=== PATIENT | male | born 1970 | race Caucasian/White ===

== ENCOUNTER 2021-07-05 06:42 | Inpatient (IN) | payer OTHER, SELFPAY ==
[~2021-07-05] VITALS: Ht 188 cm; Wt 104.5 kg
[2021-07-05] MEDS ORDERED: AZIT-12 PO (08:19)
[2021-07-05] MEDS ORDERED: FLUTISP NARES (08:19)
[2021-07-05] MEDS ORDERED: ALBU8.5H INH (08:19)
[2021-07-05] MEDS ORDERED: PRED20TA PO (08:19)
[2021-07-05] MEDS ORDERED: HOME MED LIST COMPLETE! XX SCH (08:20)
[2021-07-05 08:23] LABS: BASO % 0.2 % (0.0-1.0); HEMATOCRIT 50.3 % (42.0-52.0); LYMPH # 0.8 10^3/uL (1.5-5.0); LYMPH % 9.6 % (24.0-44.0); MEAN CORPUSCULAR HEMOGLOBIN 28.7 pg (27.0-33.0); MEAN CORPUSCULAR HGB CONC 33.8 g/dl (32.0-36.5); MEAN CORPUSCULAR VOLUME 84.8 fl (80.0-96.0); MONO # 0.5 10^3/uL (0.0-0.8); MONO % 5.5 % (2.0-8.0); NEUTROPHILS # 6.9 10^3/uL (1.5-8.5); NEUTROPHILS % 84.1 % (36.0-66.0); PLATELET COUNT, AUTOMATED 295 10^3/uL (150-450); RED BLOOD COUNT 5.93 10^6/uL (4.30-6.10); WHITE BLOOD COUNT 8.2 10^3/uL (4.0-10.0)
--- NOTE | 2021-07-05 08:28 | REP ---
INDICATION: Coronavirus workup COMPARISON: None. TECHNIQUE: Portable AP view of the chest FINDINGS: Mediastinum and cardiac silhouette are normal. Very subtle mid to lower lobe opacities are suspected and concerning for COVID-19 pulmonary disease. No discrete focal consolidation. No effusion. No pneumothorax. IMPRESSION: Subtle mid to lower lobe opacities concerning for COVID-19 pulmonary disease. <Electronically signed by Tj Cook > 07/05/21 0861
[2021-07-05 08:32] LABS: INR 1.02; PROTHROMBIN TIME 13.8 SECONDS (12.7-14.5)
[2021-07-05 08:33] LABS: PARTIAL THROMBOPLASTIN TIME 30.8 SECONDS (25.9-37.0)
[2021-07-05 08:36] LABS: D-DIMER QUANT 524.22 ng/ml (<500)
[2021-07-05 08:51] LABS: ALBUMIN 3.1 GM/DL (3.2-5.2); ALT/SGPT 51 U/L (12-78); BILIRUBIN,TOTAL 0.7 MG/DL (0.2-1.0); BLOOD UREA NITROGEN 31 MG/DL (7-18); C REACTIVE PROTEIN QUANTITATIV 5.33 MG/DL (0.00-0.30); CALCIUM LEVEL 9.2 MG/DL (8.5-10.1); CARBON DIOXIDE LEVEL 26 MEQ/L (21-32); CHLORIDE LEVEL 103 MEQ/L (98-107); CREATININE FOR GFR 0.85 MG/DL (0.70-1.30); FERRITIN 1068 NG/ML (26-388); GLOMERULAR FILTRATION RATE > 60.0 (>56); GLUCOSE, FASTING 133 MG/DL (70-100); LDH LACTATE DEHYDROGENASE 396 U/L (87-241); SODIUM LEVEL 138 MEQ/L (136-145); TOTAL PROTEIN 6.8 GM/DL (6.4-8.2)
[2021-07-05 08:53] LABS: CK-MB VALUE MASS < 1.0 NG/ML (<3.6); CPK CREATINE PHOSPHOKINASE 63 U/L (39-308); MB/CK RELATIVE INDEX 1.59 (< OR =4)
[2021-07-05 09:25] LABS: ABG BASE EXCESS 0.3 (-2.0-2.0); ABG HCO3 23.6 MEQ/L (22.0-26.0); ABG O2 SATURATION 97.8 % (95.0-99.0); ABG PARTIAL PRESSURE CO2 34.9 mmHg (35.0-45.0); ABG PARTIAL PRESSURE O2 108.8 mmHg (75.0-100.0); ABG STANDARD HCO3 24.7 MEQ/L (22.0-26.0); ABG TOTAL CO2 24.7 MEQ/L (22.0-29.0); ABG pH (ARTERIAL) 7.448 UNITS (7.350-7.450)
[2021-07-05] MEDS: ASPIRIN 81MG ENTERIC TABLET PO SCH (10:56)
[2021-07-05] MEDS: dexameTHASONE 4 MG/ML 1ML VIAL (J1100 PER 1MG) IV SCH (10:56)
--- NOTE | 2021-07-05 11:58 | HPEPDOC ---
General Date of Admission Jul 05, 2021 at 10:09 Date of Service: Jul 05, 2021 Chief Complaint The patient is a 50-year-old male admitted with a reason for visit of Acute Hypoxemic Respiratory Failure Due To Covid19. Source: Patient Exam Limitations: No limitations Timing/Duration: Day(s) (11) Severity: Mild Associated Symptoms: Cough, Fever, Chills, Nausea History of Present Illness Patient is a a very pleasant 50 year old male presented to [facility] ER due to fever, chills, dyspnea, loss of smell, and loss of taste. He reported that his symptoms started on 06/24/2021 after he met with his son and son-in-law. Sick contact including his son and his son in law who were both tested positive for COVID. He started having symptoms including fever, chills, dyspnea, loss of smell, loss of taste, diarrhea. He reported that his symptoms has been improving mildly but today he started to have productive cough without hemoptysis. Patient was saturating at 91% on room air in the ER, and it was noted that the patient would desaturate to 85% while standing. In the ER patient required 4 liter of nasal cannula oxygen to be saturating at around 95%. He denies rhinorrhea, abdominal pain, chest pain, palpitation, numbness, tingling, or loss of sensation. Home Medications Scheduled Ascorbic Acid (Vitamin C) 500 Mg Tablet, 500 MG PO BID Dexamethasone (Dexamethasone) 2 Mg Tablet, 2 MG PO DAILY Zinc Sulfate (Zinc Sulfate) 220 Mg Capsule, 220 MG PO DAILY Scheduled PRN Albuterol Sulfate (Albuterol Sulfate Hfa) 8.5 Gm Hfa.aer.ad, 1-2 PUFFS INH Q4H PRN for SOB/WHEEZING, (Reported) Fluticasone Propionate (Fluticasone Propionate) 16 Gm [place].susp, 2 SPRAY NARES DAILY PRN for , (Reported) Allergies Coded Allergies: No Known Allergies (Verified Allergy, Unknown, 07/05/21) Past Medical History Medical History Depression Insomnia Family History Significant Family History: No pertinent family hx Social History * Smoker: Denies Recent Travel/Sick Contacts: Reports: Recent sick contacts A-FIB/CHADSVASC A-FIB History Current/History of A-Fib/PAF?: No Review of Systems Constitutional: Reports: Chills, Fever, Fatigue Pulmonary: Reports: Cough; Denies: Dyspnea Cardiovascular: Denies: Chest Pain, Palpitations Gastrointestinal: Reports: Diarrhea; Denies: Nausea, Vomiting, Abdominal Pain, Constipation, Hematochezia Musculoskeletal: Reports: Other Symptoms (Generalized body ache) Neurological: Denies: Numbness Physical Examination General Exam: Positive: Alert, Cooperative, No Acute Distress Eye Exam: Positive: Conjunctiva & lids normal; Negative: Sclera icteric ENT Exam: Positive: Atraumatic, Mucous membr. moist/pink Neck Exam: Positive: Supple Chest Exam: Positive: Clear to auscultation, Normal air movement; Negative: Rales, Rhonchi, Wheezing Heart Exam: Positive: Rate Normal, Regular Rhythm, Normal S1, Normal S2; Negative: Murmurs Abdomen Exam: Positive: Normal bowel sounds, Soft; Negative: Tenderness Skin Exam: Positive: Nl turgor and temperature Neuro Exam: Positive: Normal Speech, Normal Tone Psych Exam: Positive: Mental status NL, Mood NL, Memory Intact, Oriented x 3 Vital Signs Vital Signs Date Time Temp Pulse Resp B/P (MAP) Pulse Ox O2 Delivery O2 Flow Rate FiO2 07/05/21 11:15 126/76 (93) 07/05/21 11:12 81 24 94 Nasal Cannula 4.0 07/05/21 06:43 98.2 Laboratory Data Labs 24H Laboratory Tests 2 07/05/21 08:02: Immature Granulocyte % (Auto) 0.6, Neutrophils (%) (Auto) 84.1H, Lymphocytes (%) (Auto) 9.6L, Monocytes (%) (Auto) 5.5, Eosinophils (%) (Auto) 0.0, Basophils (%) (Auto) 0.2, Neutrophils # (Auto) 6.9, Lymphocytes # (Auto) 0.8L, Monocytes # (Auto) 0.5, Eosinophils # (Auto) 0.0, Basophils # (Auto) 0.0, Nucleated Red Blood Cells % (auto) 0.0, Prothrombin Time 13.8, Prothromb Time International Ratio 1.02, Activated Partial Thromboplast Time 30.8, D-Dimer, Quantitative 524.22H, Anion Gap 9, Glomerular Filtration Rate > 60.0, Lactic Acid Level 1.8, Calcium Level 9.2, Ferritin 1068H, Total Bilirubin 0.7, Aspartate Amino Transf (AST/SGOT) 38H, Alanine Aminotransferase (ALT/SGPT) 51, Alkaline Phosphatase 57, Lactate Dehydrogenase 396H, Total Creatine Kinase 63, Creatine Kinase MB < 1.0, Creatine Kinase MB Relative Index 1.59, Troponin I High Sensitivity 9.0, C- Reactive Protein, Quantitative 5.33H, Total Protein 6.8, Albumin 3.1L, Albumin/Globulin Ratio 0.8 07/05/21 08:46: Blood Gas Bicarbonate Standard 24.7, Arterial Blood pH 7.448, Arterial Blood Partial Pressure CO2 34.9L, Arterial Blood Partial Pressure O2 108.8H, Arterial Blood Total CO2 24.7, Arterial Blood HCO3 23.6, Arterial Blood Base Excess 0.3, Arterial Blood Oxygen Saturation 97.8 CBC/BMP Laboratory Tests 07/05/21 08:02 Microbiology Microbiology 07/05/21 Blood Culture, Received Pending 07/05/21 Blood Culture, Received Pending Assessment/Plan Patient is a very pleasant 50 year old male presented to [facility] ER due to fever, chills, dyspnea, cough, and diarrhea who was tested positive for COVID on 07/02/2021 presented to [facility] ER who was found to have hypoxia. Patient was admitted to the hospital for COVID pneumonia #COVID pneumonia -Symptom onset on 06/24/2021, COVID test positive reported at [facility] on 07/02/[facility]21 -Oxygen therapy to keep oxygen saturation greater than 90%. Oxygen monitoring -CXR showed "Subtle mid to lower lobe opacities concerning for COVID-19 pulmonary disease." Blood cultureX2 pending -Start IV Dexamethasone and Remdesivir. Albuterol inhaler as needed. -Zinc Sulfate and Vitamin C. Tylenol PRN for fever -Pronation -Procalcitonin 0.07, indicating low likelihood of superimposed bacteria pneumonia. Will not start antibiotics at this time #Depression -Not on home medication -Patient's mood appears to be stable. Continue to monitor #Insomnia -Not on home medication -If sleep disturbance, may start sleep medication PRN for sleep DVT prophylaxis: Lovenox Plan / VTE VTE Prophylaxis Ordered?: Yes GME ATTESTATION GME ATTESTATION My faculty preceptor for this patient encounter was physically present during the encounter and was fully available. All aspects of the patient interview, examination, medical decision making process, and medical care plan development were reviewed and approved by the faculty preceptor. The faculty preceptor is aware and concurs with the plan as stated in the body of this note and will attest to such by his/her cosignature. ATTENDING NOTE I, Dale Prado MD, have independently examined this patient and performed my own physical exam while the resident and the students were with me in the patient room, as well as reviewed the documentation and edited where necessary. I have discussed in detail with the resident / student the findings and plan of treatment as documented by the resident / student and edited their note. I agree with their findings and treatment plan and have edited their documentation. LYLY CAMPA DO Jul 05, 2021 11:58 DALE PRADO MD Jul 08, 2021 15:45
[2021-07-05] MEDS: ASCORBIC ACID 500 MG TAB PO SCH (13:50)
[2021-07-05] MEDS: ZINC SULFATE 220 MG CAP PO SCH (13:50)
[2021-07-05] MEDS ORDERED: REMDESIVIR 200 MG in NS 250 ML IV ONE (14:00)
[2021-07-05] MEDS ORDERED: ALBUTEROL 90 MCG/ACT 8GM HFA INHALER INH PRN (14:50)
[2021-07-05] MEDS ORDERED: SODIUM CHLORIDE 0.9% INJ 10 ML SYR IV ONE (16:00)
[2021-07-05 17:24] VITALS: BP 124/86
[2021-07-05 18:03] LABS: APPEARANCE, URINE HAZY (CLEAR); BACTERIA, URINE AUTO NEGATIVE (NEGATIVE); BILIRUBIN, URINE AUTO NEGATIVE (NEGATIVE); BLOOD, URINE BLOOD NEGATIVE (NEGATIVE); COLOR, URINE AMBER (YELLOW); GLUCOSE, URINE (UA) AUTO NEGATIVE (NEGATIVE); KETONE, URINE AUTO TRACE mg/dL (NEGATIVE); LEUKOCYTE ESTERASE, URINE AUTO NEGATIVE (NEGATIVE); MUCUS, URINE SMALL (NEGATIVE); NITRITE, URINE AUTO NEGATIVE (NEGATIVE); PROTEIN, URINE AUTO 2+ mg/dL (NEGATIVE); RBC, URINE AUTO 1 /HPF (0-3); SQUAMOUS EPITHELIAL CELL UR AU 0 /HPF (0-6); UROBILINOGEN, URINE AUTO 0.2 mg/dL (0.0-2.0); WBC, URINE AUTO 2 /HPF (0-3)
[2021-07-05 20:00] VITALS: O2SAT 97
--- NOTE | 2021-07-05 20:17 | ECGEPIP ---
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
[2021-07-05 22:00] VITALS: BP 127/86
[2021-07-06] VITALS: O2SAT 93
[2021-07-06 04:00] VITALS: O2SAT 93
[2021-07-06 05:27] VITALS: BP 120/69
[2021-07-06 08:02] LABS: HEMATOCRIT 46.6 % (42.0-52.0); HEMOGLOBIN 15.9 g/dl (13.5-17.5); MEAN CORPUSCULAR HEMOGLOBIN 28.9 pg (27.0-33.0); MEAN CORPUSCULAR HGB CONC 34.1 g/dl (32.0-36.5); MEAN CORPUSCULAR VOLUME 84.7 fl (80.0-96.0); PLATELET COUNT, AUTOMATED 325 10^3/uL (150-450); WHITE BLOOD COUNT 8.9 10^3/uL (4.0-10.0)
[2021-07-06] MEDS: ZINC SULFATE 220 MG CAP PO SCH (08:03)
[2021-07-06] MEDS: dexameTHASONE 4 MG/ML 1ML VIAL (J1100 PER 1MG) IV SCH (08:03)
[2021-07-06] MEDS: ASCORBIC ACID 500 MG TAB PO SCH (08:03)
[2021-07-06] MEDS: ENOXAPARIN 40MG/0.4ML SYRINGE (J1650 PER 10MG) SC SCH (08:03)
[2021-07-06] MEDS: ASPIRIN 81MG ENTERIC TABLET PO SCH (08:03)
[2021-07-06 08:22] LABS: BLOOD UREA NITROGEN 28 MG/DL (7-18); CALCIUM LEVEL 9.1 MG/DL (8.5-10.1); CARBON DIOXIDE LEVEL 30 MEQ/L (21-32); CHLORIDE LEVEL 103 MEQ/L (98-107); CREATININE FOR GFR 0.69 MG/DL (0.70-1.30); GLOMERULAR FILTRATION RATE > 60.0 (>56); GLUCOSE, FASTING 101 MG/DL (70-100); MAGNESIUM LEVEL 2.7 MG/DL (1.8-2.4); POTASSIUM SERUM 3.5 MEQ/L (3.5-5.1); SODIUM LEVEL 139 MEQ/L (136-145)
[2021-07-06 08:27] LABS: ATYPICAL LYMPH 2 % (0-5); LYMPHOCYTES 9 % (16-44); MONOCYTES 11 % (0-5); NEUTROPHILS 78 % (28-66); PLATELET ESTIMATE NORMAL (NORMAL); POIKILOCYTOSIS 1+
[2021-07-06] MEDS ORDERED: DOCUSATE SODIUM 100MG CAPSULE PO PRN (12:00)
--- NOTE | 2021-07-06 12:02 | IPNPDOC ---
Subjective Date Seen The patient was seen on 07/06/21. Subjective Chief Complaint/HPI Patient was examined at bedside. He said the his cough has improved. He denies fever, chills, dyspnea, chest pain, palpitation, nausea, vomiting, abdominal pain, or diarrhea. He has been saturating well on 4L oxygen. No events were reported overnight General: Denies: Chills Constitutional: Denies: Chills, Fever ENT: Reports: Other Symptoms (loss of taste) Pulmonary: Denies: Dyspnea Cardiovascular: Denies: Chest Pain, Palpitations Gastrointestinal: Denies: Nausea, Vomiting, Abdominal Pain, Constipation Neurological: Reports: Other Symptoms (Denies tingling or loss of sensation); Denies: Numbness Psych: Denies: Anxiety, Depression Objective Physical Examination General Exam: Positive: Alert, Cooperative, No Acute Distress Eye Exam: Positive: Conjunctiva & lids normal; Negative: Sclera icteric ENT Exam: Positive: Atraumatic, Mucous membr. moist/pink Neck Exam: Positive: Supple Chest Exam: Positive: Clear to auscultation, Normal air movement; Negative: Rales, Rhonchi, Wheezing Heart Exam: Positive: Rate Normal, Regular Rhythm, Normal S1, Normal S2; Negative: Murmurs Abdomen Exam: Positive: Normal bowel sounds, Soft; Negative: Tenderness Skin Exam: Positive: Nl turgor and temperature Neuro Exam: Positive: Normal Speech, Normal Tone Psych Exam: Positive: Mental status NL, Mood NL, Memory Intact, Oriented x 3; Negative: Anxiety Assessment /Plan Assessment Patient is a very pleasant 50 year old male presented to [facility] ER due to fever, chills, dyspnea, cough, and diarrhea who was tested positive for COVID on 07/02/2021 presented to [facility] ER who was found to have hypoxia. Patient was admitted to the hospital for COVID pneumonia #COVID pneumonia -Symptom onset on 06/24/2021, COVID test positive reported at [facility] on 07/02/[facility]21 -Oxygen therapy to keep oxygen saturation greater than 90%. Oxygen monitoring. Patient has been saturating well on 4L oxygen. Titrate down oxygen ordered -CXR showed "Subtle mid to lower lobe opacities concerning for COVID-19 pulmon oniel disease." Blood cultureX2 pending -Start IV Dexamethasone and Remdesivir. Albuterol inhaler as needed. Incentive spirometry ordered -Zinc Sulfate and Vitamin C. Tylenol PRN for fever -Awake pronation -Procalcitonin 0.07, indicating low likelihood of superimposed bacteria pneumonia. Will not start antibiotics at this time #Depression -Not on home medication -Patient denies feeling depressed. Patient's mood appears to be stable. Continue to monitor #Insomnia -Not on home medication -If sleep disturbance, may start sleep medication PRN for sleep CODE STATUS: FULL CODE DVT prophylaxis: Lovenox Plan/VTE VTE Prophylaxis Ordered?: Yes VS, I&O, 24H, Fishbone Vital Signs/I&O Vital Signs Date Time Temp Pulse Resp B/P (MAP) Pulse Ox O2 Delivery O2 Flow Rate FiO2 07/06/21 05:27 98.0 66 19 120/69 (86) 91 Nasal Cannula 4.0 I&O- Last 24 Hours up to 6 AM 07/06/21 06:00 Intake Total 320 ml Output Total 800 ml Balance -480 ml Laboratory Data 24H LABS Laboratory Tests 2 07/05/21 17:31: Urine Color ELIE, Urine Appearance HAZY, Urine pH 6.0, Urine Specific [place] 1.030, Urine Protein 2+H, Urine Glucose (Auto)(UA) NEGATIVE, Urine Ketones (Auto) TRACEH, Urine Blood NEGATIVE, Urine Nitrite NEGATIVE, Urine Bilirubin NEGATIVE, Urine Urobilinogen 0.2, Urine Leukocyte Esterase (Auto) NEGATIVE, Urine WBC (Auto) 2, Urine RBC (Auto) 1, Urine Hyaline Casts (Auto) 0, Urine Bacteria (Auto) NEGATIVE, Urine Squamous Epithelial Cells 0, Urine Mucus (Auto) SMALL, Urine Sperm (Auto) 07/06/21 07:32: Neutrophils (%) (Auto) , Nucleated Red Blood Cells % (auto) 0.0, Neutrophils 78H, Lymphocytes (Manual) 9L, Monocytes (Manual) 11H, Atypical Lymphocytes 2, Poikilocytosis 1+, Platelet Estimate NORMAL, Anion Gap 6L, Glomerular Filtration Rate > 60.0, Calcium Level 9.1, Magnesium Level 2.7H CBC/BMP Laboratory Tests 07/06/21 07:32 Microbiology Microbiology 07/05/21 Blood Culture - Preliminary, Resulted No growth after 24 hours . All specim... 07/05/21 Blood Culture - Preliminary, Resulted No growth after 24 hours . All specim... GME ATTESTATION GME ATTESTATION My faculty preceptor for this patient encounter was physically present during the encounter and was fully available. All aspects of the patient interview, examination, medical decision making process, and medical care plan development were reviewed and approved by the faculty preceptor. The faculty preceptor is aware and concurs with the plan as stated in the body of this note and will attest to such by his/her cosignature. ATTENDING NOTE I, Dale Prado MD, have independently examined this patient and performed my own physical exam, as well as reviewed the documentation and edited where necess oniel. I have discussed in detail with the resident / student the findings and plan of treatment as documented by the resident / student and edited their note. I agree with their findings and treatment plan and have edited their documentation. LYLY CAMPA DO Jul 06, 2021 12:02 DALE PRADO MD Jul 14, 2021 15:31
[2021-07-06 14:00] VITALS: BP 116/80
[2021-07-06] MEDS: REMDESIVIR 100 MG in NS 250 ML IV SCH (14:11)
[2021-07-06] MEDS: SODIUM CHLORIDE 0.9% INJ 10 ML SYR IV SCH (15:00)
[2021-07-06 19:36] VITALS: O2SAT 92
[2021-07-06 20:00] VITALS: BP 119/74; O2SAT 92
[2021-07-07] VITALS: O2SAT 94
[2021-07-07 04:00] VITALS: BP 117/80; O2SAT 89
[2021-07-07 06:18] LABS: BASO % 0.1 % (0.0-1.0); EOS % 0.2 % (0.0-3.0); HEMATOCRIT 43.8 % (42.0-52.0); HEMOGLOBIN 14.8 g/dl (13.5-17.5); LYMPH # 1.7 10^3/uL (1.5-5.0); LYMPH % 17.5 % (24.0-44.0); MEAN CORPUSCULAR HGB CONC 33.8 g/dl (32.0-36.5); MEAN CORPUSCULAR VOLUME 85.9 fl (80.0-96.0); MONO # 0.8 10^3/uL (0.0-0.8); MONO % 8.2 % (2.0-8.0); NEUTROPHILS # 6.9 10^3/uL (1.5-8.5); NEUTROPHILS % 72.9 % (36.0-66.0); PLATELET COUNT, AUTOMATED 351 10^3/uL (150-450); WHITE BLOOD COUNT 9.5 10^3/uL (4.0-10.0)
[2021-07-07 06:34] LABS: INR 1.13; PROTHROMBIN TIME 14.9 SECONDS (12.7-14.5)
[2021-07-07 06:35] LABS: PARTIAL THROMBOPLASTIN TIME 32.8 SECONDS (25.9-37.0)
[2021-07-07 06:51] LABS: ALBUMIN 2.5 GM/DL (3.2-5.2); ALT/SGPT 54 U/L (12-78); BILIRUBIN,DIRECT 0.2 MG/DL (0.0-0.2); BILIRUBIN,TOTAL 0.6 MG/DL (0.2-1.0); BLOOD UREA NITROGEN 27 MG/DL (7-18); CALCIUM LEVEL 8.8 MG/DL (8.5-10.1); CARBON DIOXIDE LEVEL 27 MEQ/L (21-32); CHLORIDE LEVEL 106 MEQ/L (98-107); CREATININE FOR GFR 0.62 MG/DL (0.70-1.30); FERRITIN 630 NG/ML (26-388); GLOMERULAR FILTRATION RATE > 60.0 (>56); GLUCOSE, FASTING 89 MG/DL (70-100); LDH LACTATE DEHYDROGENASE 237 U/L (87-241); MAGNESIUM LEVEL 2.3 MG/DL (1.8-2.4); NT-PRO BNP 22 PG/ML (<125); POTASSIUM SERUM 3.4 MEQ/L (3.5-5.1); SODIUM LEVEL 141 MEQ/L (136-145); TOTAL PROTEIN 6.2 GM/DL (6.4-8.2)
[2021-07-07] MEDS ORDERED: POTASSIUM CHLORIDE 10MEQ SR TABLET PO ONE (07:15)
[2021-07-07 08:00] VITALS: O2SAT 95
--- NOTE | 2021-07-07 09:34 | REP ---
INDICATION: Pneumonia/COVID COMPARISON: 07/05/2021 TECHNIQUE: Portable AP view of the chest FINDINGS: The mediastinum and cardiac silhouette are stable and within normal limits for portable technique. Subtle linear and patchy opacities primarily in the bilateral mid to lower lung zones again suspected and should be correlated clinically. No discrete focal consolidation. No effusion. No pneumothorax. Skeletal structures are intact. IMPRESSION: Subtle scattered patchy and somewhat linear opacities may reflect COVID-19 pulmonary disease and correlation is required. <Electronically signed by Tj Cook > 07/07/21 [id number]
[2021-07-07] MEDS: ENOXAPARIN 40MG/0.4ML SYRINGE (J1650 PER 10MG) SC SCH (09:47)
[2021-07-07] MEDS: ASPIRIN 81MG ENTERIC TABLET PO SCH (09:47)
[2021-07-07] MEDS: ZINC SULFATE 220 MG CAP PO SCH (09:47)
[2021-07-07] MEDS: dexameTHASONE 4 MG/ML 1ML VIAL (J1100 PER 1MG) IV SCH (09:48)
[2021-07-07] MEDS: ASCORBIC ACID 500 MG TAB PO SCH (09:48)
[2021-07-07] MEDS ORDERED: VITA-243 PO (11:48)
[2021-07-07] MEDS ORDERED: DEXA2TA PO (11:48)
[2021-07-07] MEDS ORDERED: ZINC220CA PO (11:49)
[2021-07-07 12:10] VITALS: O2SAT 95
--- NOTE | 2021-07-07 13:01 | DS.PDOC ---
Discharge Summary General Date of Admission Jul 05, 2021 at 10:09 Date of Discharge 07/07/2021 Attending Physician: DALE WU MD Discharge Summary PROCEDURES PERFORMED DURING STAY: [None]. ADMITTING DIAGNOSES: 1. COVID pneumonia 2. Depression 3. Insomnia DISCHARGE DIAGNOSES: 1. COVID pneumonia 2. Depression 3. Insomnia COMPLICATIONS/CHIEF COMPLAINT: Acute Hypoxemic Respiratory Failure Due To Covid19. HISTORY OF PRESENT ILLNESS: Patient is a a very pleasant 50 year old male presented to [facility] ER due to fever, chills, dyspnea, loss of smell, and loss of taste. He reported that his symptoms started on 06/24/2021 after he met with his son and son-in-law. Sick contact including his son and his son in law who were both tested positive for COVID. He started having symptoms including fever, chills, dyspnea, loss of smell, loss of taste, diarrhea. He reported that his symptoms has been improving mildly but today he started to have productive cough without hemoptysis. Patient was saturating at 91% on room air in the ER, and it was noted that the patient would desaturate to 85% while standing. In the ER patient required 4 liter of nasal cannula oxygen to be saturating at around 95%. He denies rhinorrhea, abdominal pain, chest pain, palpitation, numbness, tingling, or loss of sensation. HOSPITAL COURSE: Patient was found to have hypoxia in ER requiring 4L of oxygen ation. His CXR showed "Subtle mid to lower lobe opacities concerning for COVID- 19 pulmonary disease." Patient was admitted to the hospital for COVID pneumonia. He was started on IV Dexamethasone and Remdesivir. He was also given Albuterol inhaler PRN, incentive spirometry, Zinc Sulfate and Vitamin C. He was placed on awake pronation. His procalcitonin was 0.07, indicating low likelihood of superimposed bacteria pneumonia. Patient was titrated down oxygen. On 07/07/2021, he said that he does not have any fever, chills, chest pain, palpitation, dyspnea, nausea, vomiting, abdominal pain, diarrhea. He is determined ready to be discharged home with incentive spirometry and dexamethasone with continued quarantine until 07/14/2021. DISCHARGE MEDICATIONS: Please see below. ALLERGIES: Please see below. PHYSICAL EXAMINATION ON DISCHARGE: VITAL SIGNS: Please see below. GENERAL: HEENT: NECK: CARDIOVASCULAR EXAMINATION: RESPIRATORY EXAMINATION: ABDOMINAL EXAMINATION: EXTREMITIES: SKIN: NEUROLOGICAL EXAMINATION: PSYCHIATRIC EXAMINATION: LABORATORY DATA: Please see below. IMAGIN07/05/2021 CXR showed "Subtle mid to lower lobe opacities concerning for COVID- 19 pulmonary disease." 07/07/2021 CXR showed "Subtle scattered patchy and somewhat linear opacities may reflect COVID-19 pulmonary disease and correlation is required." PROGNOSIS: Good ACTIVITY: [As tolerated]. DIET: Regular diet DISCHARGE PLAN AND INSTRUCTIONS: 1. Please continue quarantine until 07/14/2021 2. Please be compliant with medical treatment plan 3. Please follow up with your primary care provider in 7 days ITEMS TO FOLLOWUP ON ON OUTPATIENT: 1. COVID pneumonia DISCHARGE CONDITION: [Improved]. TIME SPENT ON DISCHARGE: minutes. Vital Signs/I&Os Vital Signs Date Time Temp Pulse Resp B/P (MAP) Pulse Ox O2 Delivery O2 Flow Rate FiO2 07/07/21 12:10 95 Room Air 07/07/21 04:00 98.7 73 18 117/80 (92) 4.0 I&O- Last 24 Hours up to 6 AM 07/07/21 06:00 Intake Total 1080 ml Output Total 1000 ml Balance 80 ml Laboratory Data Labs 24H Laboratory Tests 2 07/07/21 05:52: Immature Granulocyte % (Auto) 1.1, Neutrophils (%) (Auto) 72.9H, Lymphocytes (%) (Auto) 17.5L, Monocytes (%) (Auto) 8.2H, Eosinophils (%) (Auto) 0.2, Basophils (%) (Auto) 0.1, Neutrophils # (Auto) 6.9, Lymphocytes # (Auto) 1.7, Monocytes # (Auto) 0.8, Eosinophils # (Auto) 0.0, Basophils # (Auto) 0.0, Nucleated Red Blood Cells % (auto) 0.0, Prothrombin Time 14.9H, Prothromb Time International Ratio 1.13, Activated Partial Thromboplast Time 32.8, Fibrinogen 451, Anion Gap 8, Glomerular Filtration Rate > 60.0, Calcium Level 8.8, Magnesium Level 2.3, Ferritin 630H, Total Bilirubin 0.6, Direct Bilirubin 0.2, Aspartate Amino Transf (AST/SGOT) 28, Alanine Aminotransferase (ALT/SGPT) 54, Alkaline Phosphatase 43L, Lactate Dehydrogenase 237, Total Creatine Kinase 51, Troponin I High Sensitivity 9.0, DP-Gif-A-Type Natriuretic Peptide 22, Total Protein 6.2L, Albumin 2.5L, Albumin/Globulin Ratio 0.7 CBC/BMP Laboratory Tests 07/07/21 05:52 Microbiology Microbiology 07/05/21 Blood Culture - Preliminary, Resulted No Growth after 48 hours. All Specime... 07/05/21 Blood Culture - Preliminary, Resulted No Growth after 48 hours. All Specime... Discharge Medications Scheduled Ascorbic Acid (Vitamin C) 500 Mg Tablet, 500 MG PO BID Dexamethasone (Dexamethasone) 2 Mg Tablet, 2 MG PO DAILY Zinc Sulfate (Zinc Sulfate) 220 Mg Capsule, 220 MG PO DAILY Scheduled PRN Albuterol Sulfate (Albuterol Sulfate Hfa) 8.5 Gm Hfa.aer.ad, 1-2 PUFFS INH Q4H PRN for SOB/WHEEZING, (Reported) Fluticasone Propionate (Fluticasone Propionate) 16 Gm [place].susp, 2 SPRAY NARES DAILY PRN for , (Reported) Allergies Coded Allergies: No Known Allergies (Verified Allergy, Unknown, 07/05/21) GME ATTESTATION GME ATTESTATION My faculty preceptor for this patient encounter was physically present during the encounter and was fully available. All aspects of the patient interview, examination, medical decision making process, and medical care plan development were reviewed and approved by the faculty preceptor. The faculty preceptor is aware and concurs with the plan as stated in the body of this note and will attest to such by his/her cosignature. ATTENDING NOTE I, Dale Wu MD, have independently examined this patient and performed my own physical exam, as well as reviewed the documentation and edited where necessary. I have discussed in detail with the resident / student the findings and plan of treatment as documented by the resident / student and edited their note. I agree with their findings and treatment plan and have edited their documentation. Total time spent on this discharge including coordination of care review of chart documentation and actual patient contact is around 35 minutes LYLY CAMPA DO Jul 07, 2021 13:01 DALE WU MD Jul 14, 2021 15:34
[2021-07-07 14:00] VITALS: BP 118/77
[2021-07-07] MEDS: REMDESIVIR 100 MG in NS 250 ML IV SCH (14:40)
[2021-07-07] MEDS: SODIUM CHLORIDE 0.9% INJ 10 ML SYR IV SCH (15:28)
== END 2021-07-07 16:45 | disposition home or self-care (01) | DRG 137 ==
LOC: M ED 06:42 → M ED INP 10:09 → ENRESERV 14:14 → M 4MAIN 17:13
PROVIDERS: ADMIT Internal Medicine; ATTEND Internal Medicine
PROC: 3E0333Z Introduction of Anti-inflammatory into Peripheral Vein, Percutaneous Approach (ICD-10-PCS; principal; 2021-07-05)
PROC: XW033E5 Introduction of Remdesivir Anti-infective into Peripheral Vein, Percutaneous Approach, New Technology Group 5 (ICD-10-PCS; 2021-07-05)
DX: U07.1 COVID-19 (principal); J12.82 Pneumonia due to coronavirus disease 2019; R09.02 Hypoxemia; F32.A Depression, unspecified; G47.00 Insomnia, unspecified; Z79.899 Other long term (current) drug therapy